=== PATIENT | male | born 1975 | race Caucasian/White ===

== ENCOUNTER 2021-12-21 15:00 | Observation (INO) | payer OTHER ==
[~2021-12-21] VITALS: Ht 188 cm; Wt 72.6 kg
[2021-12-21 15:51] LABS: HEMOGLOBIN 17.8 gm/dl (14.0-17.5); RED BLOOD COUNT 5.76 M/UL (4.20-5.50); WHITE BLOOD COUNT 5.8 K/UL (4.5-11.0)
[2021-12-21 16:47] LABS: BUN/CREATININE RATIO 13 (0-10)
[2021-12-22] MEDS ORDERED: FLONASE 0.05% N16 GM (09:24)
[2021-12-22] MEDS ORDERED: ALL DAY ALLERGY10 MG PO (09:25)
[2021-12-22] MEDS ORDERED: PROBIOTIC1 EACH PO (09:26)
[2021-12-22] MEDS ORDERED: LANSOPRAZOLE30 MG PO (09:27)
[2021-12-23 08:13] LABS: RHEUMATOID ARTHRITIS FACTOR <10.0 IU/mL (<14.0)
[2021-12-23] MEDS ORDERED: ASPIRIN EC81 MG PO (11:19)
[2021-12-23] MEDS ORDERED: LIPITOR10 MG PO (11:19)
[2021-12-23 13:14] LABS: ANTI-CENTROMERE B ANTIBODIES <0.2 AI (0.0-0.9); ANTI-DSDNA ANTIBODIES 4 IU/mL (0-9); ANTI-JO-1 <0.2 AI (0.0-0.9); ANTICHROMATIN ANTIBODIES <0.2 AI (0.0-0.9); ANTIRIBOSOMAL P ANTIBODIES <0.2 AI (0.0-0.9); ANTISCLERODERMA-70 ANTIBODIES 0.2 AI (0.0-0.9); RNP ANTIBODIES <0.2 AI (0.0-0.9); SJOGREN'S ANTI-SS-A <0.2 AI (0.0-0.9); SJOGREN'S ANTI-SS-B <0.2 AI (0.0-0.9); SMITH ANTIBODIES <0.2 AI (0.0-0.9); SMITH/RNP ANTIBODIES <0.2 AI (0.0-0.9)
[2021-12-25 09:14] LABS: DRVVT 36.7 sec (0.0-47.0); LUPUS REFLEX INTERPRETATION Comment: (.); PT 10.9 sec (9.1-12.0); PT 1:1NP 10.6 sec (9.1-12.0); THROMBIN TIME 18.6 sec (0.0-23.0)
== END 2021-12-23 14:24 | disposition home or self-care (01) ==
LOC: ER1 15:00 → CDU 20:57 → M/S 20:57
PROVIDERS: Emergency Medicine; Nurse Practitioner Family; ADMIT Internal Medicine
DX: I63.89 Other cerebral infarction (principal); K21.9 Gastro-esophageal reflux disease without esophagitis; K58.9 Irritable bowel syndrome, unspecified; Z79.899 Other long term (current) drug therapy
CPT/HCPCS: ECHO; 36415; 70450; 70496; 70498; 70551; 71045; 80053; 80061; 81241; 82550; 82553; 83036; 83516; 84484; 85025; 85300; 85301; 85611; 85652; 86225; 86431; 93005; 93306; 96372; 97161; 99285; G0378; J1650; Q9967